=== PATIENT | female | born 1990 | race African-American/Black ===

== ENCOUNTER 2018-09-27 01:47 | Emergency (ER) | payer MEDICAID ==
[~2018-09-27] VITALS: Ht 170.2 cm; Wt 77.1 kg
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
[2018-09-27] MEDS ORDERED: IBUPROFEN 600 MG TABLET PO ONE (02:45)
[2018-09-27] MEDS ORDERED: IBUPROFEN 600 MG TABLET ONE (02:49)
--- NOTE | 2018-09-27 02:49 | NUR ---
Patient discharged to home in stable conditon. Written and verbal after care instructions given. Patient verbalizes understanding of instructions. Pt. d/c per MD orders, d/c papers signed, all belongings w/ pt., ambulated off unit w/ steady gait, left in private vehicle, no acute distress,
== END 2018-09-27 02:51 | disposition home or self-care (01) ==
LOC: ER 01:49
DX: S60.222A Contusion of left hand, initial encounter (principal); V59.9XXA Occupant (driver) (passenger) of pick-up truck or van injured in unspecified traffic accident, initial encounter; Y93.89 Activity, other specified; Y92.410 Unspecified street and highway as the place of occurrence of the external cause; Y99.8 Other external cause status
CPT/HCPCS: 73130; A4663